=== PATIENT | female | born 1960 | race Two or more races ===

== ENCOUNTER → 2018-02-16 | Outpatient (CLI) | payer BC ==
--- NOTE | 2018-02-17 07:42 | MM ---
Reason for exam: screening (asymptomatic). History: Patient is postmenopausal, has history of ovarian cancer at age 36, and is nulliparous. Family history of breast cancer in maternal aunt. Physical Findings: A clinical breast exam by your physician is recommended on an annual basis and results should be correlated with mammographic findings. MG 3D Screening Mammo W/Cad Bilateral CC and MLO view(s) were taken. No prior studies available for comparison. The breast tissue is extremely dense which could obscure a lesion on mammography. There is no discrete abnormality. ASSESSMENT: Benign, BI-RAD 2 RECOMMENDATION: Routine screening mammogram of both breasts in 1 year.
== END | disposition home or self-care (01) ==
LOC: RADMAMWWP 06:54
PROVIDERS: ATTEND Internal Medicine
DX: Z12.31 Encounter for screening mammogram for malignant neoplasm of breast (principal)
CPT/HCPCS: 77063; 77067

== ENCOUNTER 2018-09-20 10:03 | Observation (INO) | payer BC ==
[2018-09-20] MEDS ORDERED: NITROGLYCERIN OINT 1 INCH/GM PACKET TOPICAL STA (10:22)
[2018-09-20 10:44] LABS: Basophils # (A) 0.1 k/uL (0-0.2); Basophils % (A) 1 %; Eosinophils # (A) 0.1 k/uL (0-0.7); Eosinophils % (A) 1 %; HCT 37.8 % (34.0-46.0); HGB 13.1 gm/dL (11.4-16.0); Lymphocytes # (A) 1.8 k/uL (1.0-4.8); Lymphocytes % (A) 26 %; MCHC 34.7 g/dL (31.0-37.0); MCV 92.2 fL (80.0-100.0); Mean Platelet Volume 6.3; Monocytes # (A) 0.4 k/uL (0-1.0); Monocytes % (A) 6 %; Neutrophils # (A) 4.5 k/uL (1.3-7.7); Neutrophils % (A) 65 %; Platelet Count 240 k/uL (150-450); RBC 4.09 m/uL (3.80-5.40); RDW 12.2 % (11.5-15.5)
[2018-09-20] MEDS: ASPIRIN 81 MG PO STA ×2 (10:50→10:51)
--- NOTE | 2018-09-20 10:51 | XR ---
EXAMINATION TYPE: XR chest 2V DATE OF EXAM: 09/20/2018 COMPARISON: NONE HISTORY: Chest pain and shortness of breath TECHNIQUE: Frontal and lateral views of the chest are obtained. FINDINGS: There is no focal air space opacity, pleural effusion, or pneumothorax seen. The cardiac silhouette size is within normal limits. The osseous structures are intact. IMPRESSION: No acute cardiopulmonary process.
[2018-09-20 10:53] LABS: ALT 32 U/L (9-52); AST 44 U/L (14-36); Albumin 4.3 g/dL (3.5-5.0); Alkaline Phosphatase 54 U/L (38-126); Anion Gap 8 mmol/L; Blood Urea Nitrogen 22 mg/dL (7-17); Calcium 9.7 mg/dL (8.4-10.2); Carbon Dioxide 23 mmol/L (22-30); Chloride 108 mmol/L (98-107); Glucose 118 mg/dL (74-99); Magnesium 2.1 mg/dL (1.6-2.3); Sodium 139 mmol/L (137-145); Total Bilirubin 0.7 mg/dL (0.2-1.3)
[2018-09-20 11:06] LABS: INR 0.9 (<1.2); Partial Thromboplastin Time 26.4 sec (22.0-30.0); Prothrombin Time 10.1 sec (9.0-12.0)
--- NOTE | 2018-09-20 11:30 | ED ---
General Adult HPI - General Chief complaint: Chest Pain Stated complaint: chest pain/anxiety Time Seen by Provider: 09/20/18 10:10 Source: patient, EMS, RN notes reviewed Mode of arrival: EMS Limitations: no limitations - History of Present Illness Initial comments: This is a 58-year-old female presents emergency Department with a family history strong for cardiac disease. Patient states she was running today exercising. Patient states she started having chest pain it did not radiate anywhere but also made her very short of breath. Patient states the pain is always there but she takes deep breath she notes it to be worse. Patient denies any pa lpitations. Patient denies any recent fever chills or cough. Patient denies headache patient denies numbness weakness per patient denies lightheadedness dizziness nursing episode. Patient denies abdominal pain patient denies nausea vomiting diarrhea. Patient denies any recent history of fever chills or cough. She denies any swelling to the legs or calf tenderness. - Related Data Home Medications Medication Instructions Recorded Confirmed Aspirin EC [Ecotrin] 325 mg PO DAILY 09/20/18 09/20/18 Cholecalciferol [Vitamin D3] 1,000 unit PO DAILY 09/20/18 09/20/18 Cyanocobalamin (Vitamin B-12) 1,000 mcg PO DAILY 09/20/18 09/20/18 [Vitamin B-12] Multivitamins, Thera [Multivitamin 1 tab PO DAILY 09/20/18 09/20/18 (formulary)] Allergies Allergy/AdvReac Type Severity Reaction Status Date / Time No Known Allergies Allergy Verified 09/20/18 11:03 Review of Systems ROS Statement: Those systems with pertinent positive or pertinent negative responses have been documented in the HPI. ROS Other: All systems not noted in ROS Statement are negative. Past Medical History Past Medical History: No Reported History History of Any Multi-Drug Resistant Organisms: None Reported Past Surgical History: Hysterectomy Past Psychological History: Anxiety Smoking Status: Current some day smoker Past Alcohol Use History: Occasional Past Drug Use History: None Reported General Exam - General Exam Comments Initial Comments: GENERAL: Patient is well-developed and well-nourished. Patient is nontoxic and well- hydrated and is in mild distress. ENT: Neck is soft and supple. No significant lymphadenopathy is noted. Oropharynx is clear. Moist mucous membranes. Neck has full range of motion without eliciting any pain. EYES: The sclera were anicteric and conjunctiva were pink and moist. Extraocular movements were intact and pupils were equal round and reactive to light. Eyelids were unremarkable. PULMONARY: Unlabored respirations. Good breath sounds bilaterally. No audible rales r honchi or wheezing was noted. CARDIOVASCULAR: There is a regular rate and rhythm without any murmurs gallops or rubs. ABDOMEN: Soft and nontender with normal bowel sounds. SKIN: Skin is clear with no lesions or rashes and otherwise unremarkable. NEUROLOGIC: Patient is alert and oriented x3. Cranial nerves II through XII are grossly intact. Motor and sensory are also intact. Normal speech, volume and content. Symmetrical smile. MUSCULOSKELETAL: Normal extremities with adequate strength and full range of motion. No lower extremity swelling or edema. No calf tenderness. LYMPHATICS: No significant lymphadenopathy is noted PSYCHIATRIC: Normal psychiatric evaluation. Limitations: no limitations Course Vital Signs 09/20/18 09/20/18 09/20/18 10:11 10:30 11:00 Temperature 98.4 F Pulse Rate 67 72 62 Respiratory 22 12 15 Rate Blood Pressure 132/88 132/88 113/76 O2 Sat by Pulse 99 100 100 Oximetry 09/20/18 12:14 Temperature 98.6 F Pulse Rate 58 L Respiratory 16 Rate Blood Pressure 110/79 O2 Sat by Pulse 99 Oximetry Medical Decision Making - Medical Decision Making EKG shows normal sinus rhythm at 62 bpm LA interval 240 QRS is 74 Q-T intervals 412 QTC is 418. Patient's EKG shows no ST segment elevation or depression or T wave abnormalities are noted. Chest x-ray shows no acute abnormality. I started the patient on heparin because of the significant symptoms that the patient was having indicated unstable angina. I spoke with Dr. Edwards agreed to admit the patient admitted the patient I wrote a minute orders I continued heparin and aspirin and Nitropaste on the floor. I consulted cardiology. - Lab Data Result diagrams: 09/20/18 10:19 09/20/18 10:19 Lab Results 09/20/18 09/20/18 09/20/18 Range/Units 10:19 10:19 10:19 WBC 7.0 (3.8-10.6) k/uL RBC 4.09 (3.80-5.40) m/uL Hgb 13.1 (11.4-16.0) gm/dL Hct 37.8 (34.0-46.0) % MCV 92.2 (80.0-100.0) fL MCH 32.0 (25.0-35.0) pg MCHC 34.7 (31.0-37.0) g/dL RDW 12.2 (11.5-15.5) % Plt Count 240 (150-450) k/uL Neutrophils % 65 % Lymphocytes % 26 % Monocytes % 6 % Eosinophils % 1 % Basophils % 1 % Neutrophils # 4.5 (1.3-7.7) k/uL Lymphocytes # 1.8 (1.0-4.8) k/uL Monocytes # 0.4 (0-1.0) k/uL Eosinophils # 0.1 (0-0.7) k/uL Basophils # 0.1 (0-0.2) k/uL PT 10.1 (9.0-12.0) sec INR 0.9 (<1.2) APTT 26.4 (22.0-30.0) sec D-Dimer (<0.60) mg/L FEU Sodium 139 (137-145) mmol/L Potassium 4.0 (3.5-5.1) mmol/L Chloride 108 H (98-107) mmol/L Carbon Dioxide 23 (22-30) mmol/L Anion Gap 8 mmol/L BUN 22 H (7-17) mg/dL Creatinine 0.72 (0.52-1.04) mg/dL Est GFR (CKD-EPI)AfAm >90 (>60 ml/min/1.73 sqM) Est GFR (CKD-EPI)NonAf >90 (>60 ml/min/1.73 sqM) Glucose 118 H (74-99) mg/dL Calcium 9.7 (8.4-10.2) mg/dL Magnesium 2.1 (1.6-2.3) mg/dL Total Bilirubin 0.7 (0.2-1.3) mg/dL AST 44 H (14-36) U/L ALT 32 (9-52) U/L Alkaline Phosphatase 54 (38-126) U/L Troponin I (0.000-0.034) ng/mL Total Protein 7.0 (6.3-8.2) g/dL Albumin 4.3 (3.5-5.0) g/dL 04/08/19 04/08/19 Range/Units 10:19 10:19 WBC (3.8-10.6) k/uL RBC (3.80-5.40) m/uL Hgb (11.4-16.0) gm/dL Hct (34.0-46.0) % MCV (80.0-100.0) fL MCH (25.0-35.0) pg MCHC (31.0-37.0) g/dL RDW (11.5-15.5) % Plt Count (150-450) k/uL Neutrophils % % Lymphocytes % % Monocytes % % Eosinophils % % Basophils % % Neutrophils # (1.3-7.7) k/uL Lymphocytes # (1.0-4.8) k/uL Monocytes # (0-1.0) k/uL Eosinophils # (0-0.7) k/uL Basophils # (0-0.2) k/uL PT (9.0-12.0) sec INR (<1.2) APTT (22.0-30.0) sec D-Dimer <0.17 (<0.60) mg/L FEU Sodium (137-145) mmol/L Potassium (3.5-5.1) mmol/L Chloride (98-107) mmol/L Carbon Dioxide (22-30) mmol/L Anion Gap mmol/L BUN (7-17) mg/dL Creatinine (0.52-1.04) mg/dL Est GFR (CKD-EPI)AfAm (>60 ml/min/1.73 sqM) Est GFR (CKD-EPI)NonAf (>60 ml/min/1.73 sqM) Glucose (74-99) mg/dL Calcium (8.4-10.2) mg/dL Magnesium (1.6-2.3) mg/dL Total Bilirubin (0.2-1.3) mg/dL AST (14-36) U/L ALT (9-52) U/L Alkaline Phosphatase (38-126) U/L Troponin I <0.012 (0.000-0.034) ng/mL Total Protein (6.3-8.2) g/dL Albumin (3.5-5.0) g/dL Critical Care Time Critical Care Time: Yes Total Critical Care Time: 35 Disposition Clinical Impression: Unstable angina pectoris Disposition: ADMITTED IP TO THIS [facility] Time of Disposition: 13:09
[2018-09-20] MEDS ORDERED: HEPARIN SODIUM,PORCINE 5,000 UNIT/ML 1 ML VIAL IV ONE (13:08)
[2018-09-20] MEDS ORDERED: NITROGLYCERIN SL TABS 0.4 MG TAB SUBLINGUAL PRN (13:10)
[2018-09-20] MEDS ORDERED: HEPARIN SOD,PORK IN 0.45% NACL 25,000 UNIT in 0.45% NACL 1 250ML.BAG IV SCH (13:15)
[2018-09-20] MEDS ORDERED: HYDROcodone/APAP 5-325MG 1 EACH TAB PO PRN (18:21)
[2018-09-20] MEDS ORDERED: TEMAZEPAM 15 MG CAP PO PRN (18:21)
[2018-09-20] MEDS ORDERED: ALPRAZolam 0.25 MG TAB PO PRN (18:21)
[2018-09-20] MEDS ORDERED: ACETAMINOPHEN TAB 500 MG TAB PO PRN (18:21)
[2018-09-20] MEDS: NITROGLYCERIN OINT 1 INCH/GM PACKET TOPICAL SCH (20:00)
--- NOTE | 2018-09-20 20:04 | HP ---
HISTORY AND PHYSICAL CHIEF COMPLAINT: Chest pain. HISTORY OF PRESENT ILLNESS: This 58-year-old woman with a past medical history of seasonal allergies, anxiety being followed by Dr. Roper in the outpatient setting, apparently was working from home and the patient apparently was on the treadmill this morning. Patient had some vague discomfort on the left side. Subsequently, patient had sharp chest pain in the anterior part of the chest radiating to the shoulder. The patient came to [facility] and admitted to the hospital for further evaluation and treatment. There is no history of any palpitations, headache, loss of consciousness, sweating. The pain was aggravated by taking deep breaths according to her. Patient had a stress test about 2 years ago. This is not available at this time. The initial troponins are negative and an EKG done on admission showed normal sinus rhythm and the chest x-ray showed no acute cardiopulmonary process. There is no history of fever, rigors or chills at this time. PAST MEDICAL HISTORY: Of seasonal allergies, history of tonsillectomy, history of hysterectomy. History of anxiety. MEDICATIONS: Prior to admission include home medications are: 1. Multivitamins 1 p.o. daily. 2. Vitamin B12 1000 mcg daily. 3. Vitamin D3 1000 daily. 4. Ecotrin 320 mg daily. ALLERGIES: None. FAMILY HISTORY: History of diabetes mellitus. SOCIAL HISTORY: Occasional alcohol intake. History of light smoking. REVIEW OF SYSTEMS: ENT: No diminished vision. No diminished hearing. Cardiovascular System: As mentioned earlier. RESPIRATORY: As mentioned earlier. GI no nausea or vomiting. : No dysuria. NERVOUS SYSTEM: No numbness or weakness. ALLERGY/IMMUNOLOGY: No asthma or hayfever. MUSCULOSKELETAL: As mentioned earlier. HEMATOLOGY/ONCOLOGY: No history of anemia. ENDOCRINE: No history of diabetes or hypothyroidism. CONSTITUTIONAL: As mentioned earlier. Dermatology: Negative. Rheumatology: Negative. Psychiatry: As mentioned earlier. PHYSICAL EXAM: Patient is alert, oriented x3. The pulse is 65, blood pressure 109/78, respiratory rate 16, temperature 97.2, pulse ox 98% on 2 L. HEENT: Conjunctivae normal. Neck: No jugular venous distention. CARDIOVASCULAR: S1, S2 muffled. Respirations: Breath sounds diminished in the bases. No rhonchi. No crackles. ABDOMEN: Soft, nontender. No mass palpable. Legs no edema. No swelling. NERVOUS SYSTEM: Higher functions as mentioned earlier. Moves all 4 limbs. No focal motor or sensory deficits. Lymphatics: No lymph nodes palpable in the neck, axillae or groin. SKIN: No ulcer, rash or bleeding. JOINTS: No active deforming arthropathy. LABS: CBC within normal limits. Sodium 130, potassium 4, AST is 44. ASSESSMENT: 1. Chest pain possible unstable angina. 2. Increased random blood sugar. 3. History of seasonal allergies. 4. History of hysterectomy. 5. History of tonsillectomy. 6. History anxiety. RECOMMENDATIONS AND DISCUSSION: In this 58-year-old woman who presented with multiple complex medical issues, we will monitor the patient closely, continue the current medications, unstable angina protocol, rule out myocardial infarction. Closely follow with Cardiology. Possible stress test. Guarded prognosis. Further recommendations to follow. Copy of this dictation being forwarded to Dr. Roper, who is the primary physician. Initial evaluation negative so far. MMODL / IJN: [id number] /
[2018-09-20 20:19] LABS: Appearance,Urine Clear (Clear); Bilirubin,Urine Negative (Negative); Blood,Urine Negative (Negative); Color,Urine Yellow; Glucose,Urine (UA) Negative (Negative); Ketones,Urine Negative (Negative); Leukocyte Esterase,Urine Negative (Negative); Nitrite,Urine Negative (Negative); Protein,Urine Trace (Negative); Specific Gravity,Urine 1.025 (1.001-1.035); Urobilinogen,Urine <2.0 mg/dL (<2.0)
[2018-09-21] MEDS: NITROGLYCERIN OINT 1 INCH/GM PACKET TOPICAL SCH (00:05)
[2018-09-21 06:35] LABS: Basophils % (A) 1 %; Eosinophils # (A) 0.2 k/uL (0-0.7); Eosinophils % (A) 4 %; HGB 12.3 gm/dL (11.4-16.0); Lymphocytes # (A) 2.2 k/uL (1.0-4.8); Lymphocytes % (A) 48 %; MCH 31.3 pg (25.0-35.0); MCHC 33.2 g/dL (31.0-37.0); MCV 94.3 fL (80.0-100.0); Mean Platelet Volume 6.4; Monocytes # (A) 0.3 k/uL (0-1.0); Monocytes % (A) 6 %; Neutrophils # (A) 1.8 k/uL (1.3-7.7); Neutrophils % (A) 40 %; Platelet Count 235 k/uL (150-450); RBC 3.92 m/uL (3.80-5.40); RDW 12.3 % (11.5-15.5); WBC 4.6 k/uL (3.8-10.6)
[2018-09-21 06:55] LABS: Anion Gap 5 mmol/L; Blood Urea Nitrogen 17 mg/dL (7-17); Calcium 9.1 mg/dL (8.4-10.2); Carbon Dioxide 26 mmol/L (22-30); Chloride 108 mmol/L (98-107); Cholesterol 153 mg/dL (<200); Glucose 97 mg/dL (74-99); HDL Cholesterol 65 mg/dL (40-60); LDL Cholesterol,Calculated 75 mg/dL (0-99); Potassium 4.5 mmol/L (3.5-5.1); Sodium 139 mmol/L (137-145); Triglycerides 66 mg/dL (<150)
[2018-09-21] MEDS ORDERED: PANTOPRAZOLE 40 MG TABLET PO SCH (07:30)
[2018-09-21] MEDS ORDERED: ASPIRIN 325 MG TAB PO SCH (09:00)
[2018-09-21] MEDS ORDERED: MULTIVITAMINS, THERA 1 EACH TAB PO SCH (09:00)
[2018-09-21 11:52] VITALS: BP 121/77; PULSE 65; RESP 18; TEMP 97.5
[2018-09-21] MEDS ORDERED: CYANOCOBALAMIN 500 MCG TAB PO SCH (12:00)
[2018-09-21] MEDS ORDERED: CHOLECALCIFEROL 1,000 UNIT TAB PO SCH (12:00)
--- NOTE | 2018-09-21 13:12 | P.CRDCN ---
History of Present Illness History of present illness: This is a pleasant 58-year-old female past medical history significant for chronic nicotine dependence. She denies history of hypertension, dyslipidemia, coronary artery disease or diabetes mellitus. We've been asked to see her in consultation secondary to chest discomfort. She states she exercises daily on the treadmill. Yesterday morning while at the gym on the treadmill she started having a sharp discomfort in the midsternal region. She saw her treadmill down continued exercising. After a couple of minutes the chest discomfort subsided. She continued exercising and finished her normal routine. Later in the afternoon she was sitting down doing a conference call from work when she again felt very intense sharp pain in the midsternal region with radiation through to the back. This time was associated with shortness of breath and "clammy hands. She denies palpitations, nausea or vomiting. This episode lasted for approximately 15 minutes and ultimately subsided on its own. EKG on arrival reveals sinus mechanism with no acute ST or T-wave abnormalities. Enzymes are negative 3. She has had no further symptoms of chest discomfort since arriving at the hospital. At the time of my exam: CONSTITUTIONAL: Denies fever. Denies chills. EYES: Denies blurred vision. Denies vision changes. Denies eye pain. EARS, NOSE, MOUTH & THROAT: Denies headache. Denies sore throat. Denies ear pain. CARDIOVASCULAR: Denies chest pain. Denies shortness of breath. Denies orthopnea. Denies PND. Denies palpitations. RESPIRATORY: Denies cough. GASTROINTESTINAL: Denies abdominal pain. Denies diarrhea. Denies constipation. Denies nausea. Denies vomiting. MUSCULOSKELETAL: Denies myalgias. INTEGUMENTARY: Denies pruitis. Denies rash. NEUROLOGIC: Denies numbness. Denies tingling. Denies weakness. PSYCHIATRIC: Denies anxiety. Denies depression. ENDOCRINE: Denies fatigue. Denies weight change. Denies polydipsia. Denies polyurina. GENITOURINARY: Denies burning, hematuria or urgency with micturation. HEMATOLOGIC: Denies history of anemia. Denies bleeding. Blood pressure 121/77 heart rate 65 afebrile maintaining oxygen saturation on room air GENERAL: This is a 58-year-old female in no apparent distress at the time of my examination. HEENT: Head is atraumatic, normocephalic. Pupils are equal, round. Sclerae anicteric. Conjunctivae are clear. Mucous membranes of the mouth are moist. Neck is supple. There is no jugular venous distention. No carotid bruit is heard. LUNGS: Clear to auscultation no wheezes, rales or rhonchi. No chest wall tenderness is noted on palpation or with deep breathing. HEART: Regular rate and rhythm without murmurs, rubs or gallops. S1 and S2 heard . ABDOMEN: Soft, nontender. Bowel sounds are heard. No organomegaly noted. EXTREMITIES: No evidence of peripheral edema and no calf tenderness noted. VASCULAR: Radial and dorsalis pedis pulses palpated, no evidence of clubbing. NEUROLOGIC: Patient is awake, alert and oriented x3. ASSESSMENT Chest pain while exercising with atypical features. Chronic nicotine dependence PLAN An acute coronary event has been ruled out. Obtain 2-D echocardiogram and Doppler study to assess cardiac structure and function. Perform exercise stress echocardiogram to assess for stress induced cardiac ischemia. Smoking cessation highly recommended. Further recommendations to follow based upon clinical course. If stress test is normal other etiologies for chest discomfort should be addressed. Thank you kindly for this consultation. Nurse Practitioner note has been reviewed, I agree with a documented findings and plan of care. Patient was seen and examined. Past Medical History Past Medical History: No Reported History Additional Past Medical History / Comment(s): Seasonal allergies History of Any Multi-Drug Resistant Organisms: None Reported Past Surgical History: Hysterectomy, Tonsillectomy Additional Past Surgical History / Comment(s): Colonoscopy Past Anesthesia/Blood Transfusion Reactions: No Reported Reaction Smoking Status: Light tobacco smoker - Past Family History Father Family Medical History: Diabetes Mellitus Additional Family Medical History / Comment(s): Father is living. Mother Family Medical History: CVA/TIA, Diabetes Mellitus Additional Family Medical History / Comment(s): Mother is living. Medications and Allergies Home Medications Medication Instructions Recorded Confirmed Type Aspirin EC [Ecotrin] 325 mg PO DAILY 09/20/18 09/20/18 History Cholecalciferol [Vitamin D3] 1,000 unit PO DAILY 09/20/18 09/20/18 History Cyanocobalamin (Vitamin B-12) 1,000 mcg PO DAILY 09/20/18 09/20/18 History [Vitamin B-12] Multivitamins, Thera [Multivitamin 1 tab PO DAILY 09/20/18 09/20/18 History (formulary)] Allergies Allergy/AdvReac Type Severity Reaction Status Date / Time No Known Allergies Allergy Verified 09/20/18 11:03 Physical Exam Vitals: Vital Signs Temp Pulse Pulse Resp BP BP BP 09/21/18 12:00 65 18 09/21/18 11:51 97.5 F L 65 18 121/77 09/21/18 08:00 50 L 17 09/21/18 07:10 98.1 F 50 L 17 108/75 09/21/18 04:00 97.6 F 59 L 18 102/61 09/21/18 03:54 16 09/21/18 00:00 16 09/20/18 23:49 98.2 F 54 L 16 110/70 09/20/18 20:00 98.4 F 71 16 117/75 09/20/18 16:29 98.0 F 77 18 122/75 09/20/18 14:48 97.9 F 65 16 109/78 09/20/18 13:10 61 16 113/87 Pulse Ox 09/21/18 12:00 09/21/18 11:51 98 09/21/18 08:00 09/21/18 07:10 99 09/21/18 04:00 100 09/21/18 03:54 09/21/18 00:00 09/20/18 23:49 99 09/20/18 20:00 98 09/20/18 16:29 98 09/20/18 14:48 98 09/20/18 13:10 99 Intake and Output 09/20/18 09/21/18 09/21/18 22:59 06:59 14:59 Intake Total 200 Balance 200 Intake: Oral 200 Other: Voiding Method Toilet Toilet Toilet # Voids 1 1 Results 09/21/18 06:07 09/21/18 06:07 Cardiac Enzymes 09/20/18 09/20/18 Range/Units 17:12 22:59 Troponin I <0.012 <0.012 (0.000-0.034) ng/mL Coagulation 09/20/18 Range/Units 19:57 APTT 66.3 H (22.0-30.0) sec Lipids 09/21/18 Range/Units 06:07 Triglycerides 66 (<150) mg/dL Cholesterol 153 (<200) mg/dL HDL Cholesterol 65 H (40-60) mg/dL CBC 09/21/18 Range/Units 06:07 WBC 4.6 (3.8-10.6) k/uL RBC 3.92 (3.80-5.40) m/uL Hgb 12.3 (11.4-16.0) gm/dL Hct 37.0 (34.0-46.0) % Plt Count 235 (150-450) k/uL Comprehensive Metabolic Panel 09/21/18 Range/Units 06:07 Sodium 139 (137-145) mmol/L Potassium 4.5 (3.5-5.1) mmol/L Chloride 108 H (98-107) mmol/L Carbon Dioxide 26 (22-30) mmol/L BUN 17 (7-17) mg/dL Creatinine 0.71 (0.52-1.04) mg/dL Glucose 97 (74-99) mg/dL Calcium 9.1 (8.4-10.2) mg/dL Current Medications Generic Name Dose Route Start Last Admin Trade Name Freq PRN Reason Stop Dose Admin Acetaminophen 500 mg 09/20/18 18:21 Tylenol Tab PO Q6HR PRN Fever and/ or Mild Pain Hydrocodone Bitart/Acetaminophen 1 each 09/20/18 18:21 Cowley 5-325 PO Q6HR PRN Moderate Pain Alprazolam 0.25 mg 09/20/18 18:21 Xanax PO TID PRN Anxiety Aspirin 325 mg 09/21/18 09:00 09/21/18 12:22 Aspirin PO 325 mg DAILY ERIC Administration Cholecalciferol 1,000 unit 09/21/18 12:00 09/21/18 12:22 Vitamin D3 PO 1,000 unit DAILY@1200 ERIC Administration Cyanocobalamin 1,000 mcg 09/21/18 12:00 09/21/18 12:23 Vitamin B-12 PO 1,000 mcg DAILY@1200 ERIC Administration Multivitamins 1 each 09/21/18 09:00 09/21/18 12:22 Theragran PO 1 each DAILY ERIC Administration Nitroglycerin 0.4 mg 09/20/18 13:10 Nitrostat SUBLINGUAL Q5M PRN Chest Pain Pantoprazole Sodium 40 mg 09/21/18 07:30 09/21/18 12:23 Protonix PO 40 mg [id number] ERIC Administration Temazepam 15 mg 09/20/18 18:21 Restoril PO HS PRN Insomnia Intake and Output 09/20/18 09/21/18 09/21/18 22:59 06:59 14:59 Intake Total 200 Balance 200 Intake: Oral 200 Other: Voiding Method Toilet Toilet Toilet # Voids 1 1 09/21/18 06:07 09/21/18 06:07
--- NOTE | 2018-09-21 13:13 | US ---
EXAMINATION TYPE: US gallbladder DATE OF EXAM: 09/21/2018 COMPARISON: CT 2014 CLINICAL HISTORY: obtain u/s liver and gallbladder. Pt states chest pain EXAM MEASUREMENTS: Liver Length: 14.5 cm Gallbladder Wall: 0.2 cm CBD: 0.5 cm Right Kidney: 8.9 x 3.9 x 4.4 cm Pancreas: 3mm duct visualized, tail and head partially obscured by overlying bowel gas Liver: Multiple cysts scattered mostly within left lobe, largest= 3.7 x 3.0 x 3.8 cm Gallbladder: Appeared wnl Evidence for sonographic Bryant's sign: No CBD: wnl Right Kidney: Small in size, however pt very petite, otherwise appeared wnl IMPRESSION: 1. There is mild dilation of the pancreatic duct. No definite gallstones and the common bile duct galileo sures 5 mm within normal limits. Consider follow-up CT scan to assess the pancreatic head region. 2. Simple appearing hepatic cysts. Largest measures 3.8 cm.
--- NOTE | 2018-09-21 14:11 | ECHOS ---
STRESS ECHOCARDIOGRAM INDICATIONS: Chest pain. MEDICATIONS: None. BASELINE HEART RATE: 53 BASELINE BLOOD PRESSURE: 119/76 MAXIMUM HEART RATE: 156 MAXIMUM BLOOD PRESSURE: 109/70 85% MPHR: 139 100% MPHR: 163 METS: 11.7 MAXIMUM STAGE REACHED: IV TOTAL EXERCISE TIME: 10:00 CLINICAL INFORMATION: Patient was exercised for a total period of 10 minutes. The peak heart rate of 156 was achieved. Maximum blood pressure of 109/70 mmHg was noted resting EKG shows normal sinus rhythm with normal IA interval and QRS duration and normal ST-T waves. No ST- segment depression suggestive of ischemia was noted. The patient complained of atypical chest pain during the test the final impression this stress echocardiographic study is negative for stress-induced is the study the baseline echocardiographic images reveals normal left ventricular chamber size with normal left ventricular systolic function in the immediate post exercise. Normal increase in the wall thickness and contractility is noted. FINAL IMPRESSION: This stress echocardiographic study is negative for stress-induced ischemia EKG portion of the stress test is not suggestive of ischemia the patient's exercise tolerance is normal. MMODL / IJN: [id number] /
--- NOTE | 2018-09-22 07:57 | DS ---
DISCHARGE SUMMARY DATE OF SERVICE: 09/21/2018 FINAL DIAGNOSES: 1. Chest pain, possibly musculoskeletal, myocardial infarction ruled out. Negative stress echo. 2. Increased random blood sugar. 3. History of seasonal allergies. 4. History of hysterectomy. 5. History of tonsillectomy. 6. History of anxiety. DISCHARGE DISPOSITION: The patient will being discharged in a stable condition with guarded prognosis. HISTORY OF PRESENT ILLNESS: This is a 58-year-old woman with a past medical history of multiple medical problems being followed by Dr. Roper in the outpatient setting admitted with chest pain, sharp in character radiating into the left shoulder. The patient medical floor patient discussed echo by Cardiology is negative. The patient will be discharged in stable condition with guarded prognosis. Ultrasound of the gallbladder was also done which showed no definite gallstones. A simple perihepatic cyst was noted. Recommended close outpatient followup. On exam, vitals are stable. CARDIOVASCULAR: S1, S2. ABDOMEN: Soft. NERVOUS SYSTEMS: No focal deficits. LABS: LFTs are within normal limits. AST was 44, otherwise, CBC within normal limits and cholesterol panel is normal. DISCHARGE ADVICE: Diet is cardiac diet. Activity limited until followup. Follow up with Dr. Roper in 2-3 days; follow up with Cardiology as recommended. MEDICATIONS: 1. Ecotrin 320 mg p.o. daily. 2. Multivitamins 1 p.o. daily. 3. Vitamin B 2000 mcg daily. 4. Vitamin D3 one thousand daily. 5. Tylenol 500 mg p.o. q.6 p.r.n. Once again, the patient will be discharged in a stable condition. Cardiology signed the patient for discharge. MMODL / JASMINN: [id number] /
--- NOTE | 2018-09-24 11:14 | ECHOF ---
Referral Reason:cp MEASUREMENTS -------- HEIGHT: 149.9 cm WEIGHT: 49.9 kg BP: 108/75 RVIDd: 2.4 cm (< 3.3) IVSd: 1.0 cm (0.6 - 1.1) LVIDd: 3.0 cm (3.9 - 5.3) LVPWd: 1.2 cm (0.6 - 1.1) IVSs: 1.6 cm LVIDs: 2.0 cm LVPWs: 1.4 cm LA Diam: 2.7 cm (2.7 - 3.8) LAESV Index (A-L): 25.28 ml/m Ao Diam: 2.4 cm (2.0 - 3.7) AV Cusp: 1.8 cm (1.5 - 2.6) MV EXCURSION: 8.850 mm (> 18.000) MV EF SLOPE: 80 mm/s (70 - 150) EPSS: 0.9 cm MV E Alfonso: 0.71 m/s MV DecT: 199 ms MV A Alfonso: 0.90 m/s MV E/A Ratio: 0.80 RAP: 5.00 mmHg RVSP: 22.41 mmHg FINDINGS -------- Sinus rhythm.possible cyst in the liver. suggest ultrasound of liver. This was a technically good study. The left ventricular size is normal. Left ventricular wall thickness is normal. Overall left vent ricular systolic function is normal with, an EF between 60 - 65 %. The right ventricle is normal in size. Normal LA size by volume 22+/-6 ml/m2. The right atrium is normal in size. The aortic valve is trileaflet and appears structurally normal. The mitral valve is normal. Mild tricuspid regurgitation present. Right ventricular systolic pressure is normal at < 35 mmHg. The pulmonic valve was not well visualized. The aortic root, ascending aorta and aortic arch are normal. Normal inferior vena cava with normal inspiratory collapse consistent with estimated right atrial pre ssure of 5 mmHg. There is no pericardial effusion. CONCLUSIONS -------- 1. Sinus rhythm. 2. This was a technically good study. 3. The left ventricular size is normal. 4. Left ventricular wall thickness is normal. 5. Overall left ventricular systolic function is normal with, an EF between 60 - 65 %. 6. The right ventricle is normal in size. 7. Normal LA size by volume 22+/-6 ml/m2. 8. The right atrium is normal in size. 9. The aortic valve is trileaflet and appears structurally normal. 10. The mitral valve is normal. 11. Mild tricuspid regurgitation present. 12. Right ventricular systolic pressure is normal at < 35 mmHg. 13. The pulmonic valve was not well visualized. 14. The aortic root, ascending aorta and aortic arch are normal. 15. Normal inferior vena cava with normal inspiratory collapse consistent with estimated right atrial pressure of 5 mmHg. 16. There is no pericardial effusion. MAIL READER: Santa Gutierrez RDCS
== END 2018-09-21 14:51 | disposition home or self-care (01) ==
LOC: EC 10:03 → 1SOBS 13:11
PROVIDERS: ADMIT Hospitalist; ATTEND Hospitalist
DX: R07.89 Other chest pain (principal); R06.02 Shortness of breath; J30.2 Other seasonal allergic rhinitis; F41.9 Anxiety disorder, unspecified; F17.200 Nicotine dependence, unspecified, uncomplicated; R23.1 Pallor; R73.09 Other abnormal glucose; Z79.82 Long term (current) use of aspirin; Z90.710 Acquired absence of both cervix and uterus; Z82.3 Family history of stroke; Z83.3 Family history of diabetes mellitus; Z82.49 Family history of ischemic heart disease and other diseases of the circulatory system
CPT/HCPCS: 96366 ×3; 96376; 96365; 99291; 36415; 93005; 93306; 93351; 85379; 80061; 80053; 80048; 83735; 84484; 85025 ×2; 85610; 85730; 81003; 71046; 76705; G0378 ×2; J1644 ×2

== ENCOUNTER → 2021-02-12 | Outpatient (CLI) | payer BC ==
--- NOTE | 2021-02-14 10:13 | MM ---
Reason for exam: screening (asymptomatic). Last mammogram was performed 3 years ago. History: Patient is postmenopausal, has history of ovarian cancer at age 36, and is nulliparous. Family history of breast cancer in maternal aunt. Physical Findings: A clinical breast exam by your physician is recommended on an annual basis and results should be correlated with mammographic findings. MG 3D Screening Mammo W/Cad Bilateral CC and MLO view(s) were taken. Prior study comparison: February 16, 2018, bilateral MG 3d screening mammo w/cad. The breast tissue is extremely dense which could obscure a lesion on mammography. No significant changes when compared with prior studies. ASSESSMENT: Negative, BI-RAD 1 RECOMMENDATION: Routine screening mammogram of both breasts in 1 year.
== END | disposition home or self-care (01) ==
LOC: RADMAMWWP 15:52
PROVIDERS: ATTEND Internal Medicine
DX: Z12.31 Encounter for screening mammogram for malignant neoplasm of breast (principal); Z78.0 Asymptomatic menopausal state; Z85.43 Personal history of malignant neoplasm of ovary; Z80.3 Family history of malignant neoplasm of breast
CPT/HCPCS: 77063; 77067